=== PATIENT | female | born 1980 | race Caucasian/White ===

== ENCOUNTER 2022-08-20 15:03 | Emergency (ER) | payer MEDICAID, SELFPAY ==
[2022-08-20 15:38] VITALS: BP 113/71; PULSE 78; RESP 18; TEMP 37.3; O2SAT 98; BMI 21.9
[2022-08-20 18:31] VITALS: BP 124/72; PULSE 68; RESP 20; TEMP 37.1; O2SAT 97
--- NOTE | 2022-08-20 19:35 | ED_ITS ---
HPI - General Adult General Date Seen: 08/20/22 Chief complaint: Back Injury/Pain Stated complaint: Mid back injury Time Seen by Provider: 08/20/22 17:55 Source: patient History of Present Illness HPI narrative: Patient is a 41-year-old who is here with several days of mid to lower thoracic back pain. She says that she thinks she injured it with the workouts that she has been doing with kettle bells and weight training. She does not remember a specific event but did feel like those exercises were exacerbating this pain. It got bad enough that she stop doing her exercises for the past several days. She has pain with movements, especially leaning forward or twisting. She feels best when she lays on her side, supporting her ribcage. She does not have specific pain with breathing and has not felt short of breath. She has not had fevers, does not have a cough. She has been taking some Tylenol at bedtime, otherwise has not taken any medications as she prefers not to take anything. She says that she just feels like something is really wrong because when she bends forward she feels like she can not support her body weight. She does not have any radiating pain. General health is otherwise good. She does not smoke. No allergies. Related Data Allergies Allergy/AdvReac Type Severity Reaction Status Date / Time No Known Drug Allergies Allergy Verified 08/20/22 15:37 Review of Systems Status of ROS: Reports: 10 or more systems reviewed and unremarkable except as noted in History and below [facility] Social History Smoking Status: Former smoker Do you use any of these nicotine containing products: None Second hand tobacco smoke exposure: No How often do you have a drink containing alcohol: 2-4 times a month How many standard drinks containing alcohol do you have on a typical day: 1 or 2 How often do you have six or more drinks on one occasion: Never AUDIT-C Alcohol total score: 2 Non-prescribed substance use: denies use service: No Exam Narrative: Exam Narrative: Vital signs as noted above. In general, an alert, well-appearing patient. Head: Normocephalic, atraumatic. Eyes: Pupils are equal reactive. Extraocular movements are full. Conjunctivae are normal. ENT: Mucous membranes are moist. Throat is normal. Neck: Supple without lymphadenopathy. Nontender to palpation. Heart: Regular rate and rhythm. No murmur or rub. Lungs: Clear bilaterally. No increased work of breathing, crackles or wheezes. Abdomen: Soft and nontender. No organomegaly. Back: She has some mid to lower thoracic tenderness, palpation of this area makes the pain radiate up her thoracic back and down into her lower lumbar region. Extremities: Well perfused. No edema. No calf tenderness. Pulses intact. Neurologic: Patient is alert and oriented to person and place. Speech is fluent. Face is symmetric. Moves all extremities equally. Affect: Normal. Skin: Warm and dry. Well perfused. Const: Vital Signs, click to edit/add: Vital Signs - 24 hr 08/20/22 15:38 08/20/22 18:31 Temperature 99.2 F 98.7 F Pulse Rate [Pulse Oximeter] 78 68 Respiratory Rate 18 20 Blood Pressure [Ri ght Forearm] 113/71 124/72 Pulse Oximetry 98 97 Oxygen Delivery Me thod Room Air Room Air Documenting provider has reviewed patient's vital signs: yes Course Course Hospital Course: Discussed with her that overall symptoms are suggestive of musculoskeletal back pain. I do not see any red flags here that suggest a need for immediate imaging. I think the likelihood of usefulness of plain films is low, she does not describe any trauma, and my suspicion for fracture is very low. With weight training/cattle balls, I suppose there is the outside chance of something like a compression fracture, but at age 41 I think this is relatively unlikely in an otherwise healthy woman. For now, I have recommended conservative management. She really at this point has not been using anything for pain so I have recommended that she try taking ibuprofen 400 mg plus Tylenol 1000 mg 3 times daily with food and give this a week or so to see how she improves. She can use ice or heat as well. She has been seeing a chiropractor, and she can continue this if she feels that it is helpful. Discussed that if she is not finding any improvement over the next couple of weeks with conservative measures, then primary care follow-up would be reasonable, and if indicated, we can pursue imaging at that time. If at any point, she feels that symptoms are acutely worsening, or if she feels that new symptoms have developed, she can return for re-evaluation. Vital Signs Vital signs: Initial Vital Signs Temperature 99.2 F 08/20/22 15:38 Temperature Source Temporal Artery Scan 08/20/22 15:38 Pulse Rate 78 08/20/22 15:38 Pulse Rhythm 08/20/22 15:38 Respiratory Rate 18 08/20/22 15:38 Blood Pressure 113/71 08/20/22 15:38 Blood Pressure Mean 85 08/20/22 15:38 Blood Pressure Position Sitting 08/20/22 15:38 Pulse Oximetry 98 08/20/22 15:38 Oxygen Delivery Method 08/20/22 15:38 Vital Signs Temperature 99.2 F 08/20/22 15:38 Pulse Rate 78 08/20/22 15:38 Respiratory Rate 18 08/20/22 15:38 Blood Pressure 113/71 08/20/22 15:38 Pulse Oximetry 98 08/20/22 15:38 Oxygen Delivery Method 08/20/22 15:38 Temperature 98.7 F 08/20/22 18:31 Pulse Rate 68 08/20/22 18:31 Respiratory Rate 20 08/20/22 18:31 Blood Pressure 124/72 08/20/22 18:31 Pulse Oximetry 97 08/20/22 18:31 Oxygen Delivery Method 08/20/22 18:31 Discharge Plan Discharge Clinical Impression: Acute thoracic back pain Patient Disposition: Home, Self-Care Condition: Stable Instructions: Thoracic Pain (ED) Additional Instructions: Ibuprofen 400 mg plus Tylenol 1000 mg 3 times daily with food for the next 1-2 weeks. Ice and/or heat to affected area several times a day. Avoid exacerbating activities. If no improvement over the next 1-2 weeks, primary care follow-up for re-evaluation. Return at any time for acute worsening or new symptoms such as fever, shortness of breath, vomiting, or other changes. Stand Alone Forms: [facility] Info Instructions
== END 2022-08-20 18:33 | disposition home or self-care (01) ==
LOC: ED 18:20
PROVIDERS: Emergency Provider Emergency Medicine
DX: M54.6 Pain in thoracic spine (principal)
CPT/HCPCS: 99283; 99284